=== PATIENT | female | born 1985 | race Caucasian/White ===

== ENCOUNTER 2022-07-11 10:17 | Emergency (ER) | payer MEDICAID ==
[2022-07-11] MEDS ORDERED: Cyclobenzaprine 10 MG Tab PO ONE (12:23)
[2022-07-11] MEDS ORDERED: Ketorolac 60 MG/2 ML SDV IM ONE (12:23)
== END 2022-07-11 13:10 | disposition home or self-care (01) ==
LOC: JD.ED 10:17
DX: S39.012A Strain of muscle, fascia and tendon of lower back, initial encounter (principal); I10 Essential (primary) hypertension; Z88.8 Allergy status to other drugs, medicaments and biological substances; Z88.1 Allergy status to other antibiotic agents; Z79.899 Other long term (current) drug therapy
CPT/HCPCS: 96372; 99283; A9270; J1885

== ENCOUNTER 2022-09-21 08:31 | Day surgery (SDC) | payer MEDICAID ==
[~2022-09-21 08:31] MED LIST: Lactated Ringers 1,000 ML IV SCH; Lidocaine 1%/Sod Bicarbonate in NS 8.4% 1 ML Syringe IDERM PRN; Sodium Chloride 0.9% 10 ML Syringe FLUSH PRN; Sodium Chloride 0.9% 10 ML Syringe FLUSH SCH
[2022-09-21] MEDS: Lactated Ringers 1,000 ML IV SCH (09:20)
[2022-09-21] MEDS ORDERED: Bupivacaine 0.25% 10 ML SDV ONE (09:43)
[2022-09-21] MEDS ORDERED: fentaNYL 100 MCG/2 ML SDV ONE (10:10)
[2022-09-21] MEDS ORDERED: Propofol 200 MG/20 ML SDV ONE (10:10)
[2022-09-21] MEDS ORDERED: Lidocaine 1% 4 ML ONE (10:10)
[2022-09-21] MEDS ORDERED: Midazolam 1 MG/ML 2 ML SDV ONE (10:38)
[2022-09-21] MEDS: Bupivacaine 0.5% 30 ML SDV ONE (11:13)
[2022-09-21] MEDS ORDERED: Ketorolac 15 MG/ML SDV ONE (11:18)
[2022-09-21] MEDS ORDERED: Ketorolac 30 MG/ML SDV ONE (11:23)
== END 2022-09-21 12:54 | disposition home or self-care (01) ==
LOC: JD.SDS 08:31
PROVIDERS: ATTEND Surgery
DX: K63.5 Polyp of colon (principal); K62.1 Rectal polyp; K29.70 Gastritis, unspecified, without bleeding; K29.80 Duodenitis without bleeding; K64.4 Residual hemorrhoidal skin tags; I10 Essential (primary) hypertension; K21.9 Gastro-esophageal reflux disease without esophagitis; I42.9 Cardiomyopathy, unspecified; G47.30 Sleep apnea, unspecified; Z80.0 Family history of malignant neoplasm of digestive organs; Z98.890 Other specified postprocedural states; Z90.710 Acquired absence of both cervix and uterus; Z79.82 Long term (current) use of aspirin; Z79.899 Other long term (current) drug therapy; Z88.1 Allergy status to other antibiotic agents; Z88.8 Allergy status to other drugs, medicaments and biological substances; Z83.71 Family history of colonic polyps
CPT/HCPCS: J1885; J2250; J2704; J3010; J3490; J7120

== ENCOUNTER 2022-10-07 23:44 | Emergency (ER) | payer MEDICAID ==
[2022-10-07] MEDS ORDERED: Sodium Chloride 0.9% 1,000 ML IV SCH (23:45)
[2022-10-07] MEDS ORDERED: Ondansetron 4 MG/2 ML SDV IVPUSH ONE (23:55)
[2022-10-08] MEDS ORDERED: HYDROmorphone 0.5 MG/0.5 ML Syringe IVPUSH ONE ×2 (00:38→03:08)
[2022-10-08 00:54] LABS: ESTIMATED GFR 59 mL/min (>60)
[2022-10-08] MEDS ORDERED: Sodium Chloride 0.9% 1,000 ML IV SCH (02:00)
[2022-10-08] MEDS ORDERED: Sodium Chloride 0.9% 10 ML Syringe FLUSH ONE (02:03)
[2022-10-08] MEDS ORDERED: Iopamidol 612 MG/ML 100 ML Bottle IVPUSH ONE (02:03)
== END 2022-10-08 04:10 | disposition home or self-care (01) ==
LOC: JD.ED 23:44
DX: R10.84 Generalized abdominal pain (principal); R11.2 Nausea with vomiting, unspecified; I11.9 Hypertensive heart disease without heart failure; K21.9 Gastro-esophageal reflux disease without esophagitis; Z95.0 Presence of cardiac pacemaker; Z88.1 Allergy status to other antibiotic agents; Z88.8 Allergy status to other drugs, medicaments and biological substances; Z79.899 Other long term (current) drug therapy
CPT/HCPCS: 36415; 74019; 74177; 80053; 83690; 84484; 84702; 85025; 86140; 93005; 96361; 96374; 96375; 96376; 99284; J1170; J2405; J3490; J7030; Q9967; 93010

== ENCOUNTER 2024-03-13 21:52 | Emergency (ER) | payer MEDICAID ==
[2024-03-13 22:12] LABS: BASOPHILS ABSOLUTE AUTO 0.1 K/mm3 (0.0-0.2); BASOPHILS PERCENT AUTO 0.6 % (0.0-1.0); EOSINOPHILS ABSOLUTE AUTO 0.4 K/mm3 (0.0-0.4); EOSINOPHILS PERCENT AUTO 2.9 % (0.0-6.0); HEMATOCRIT 48.2 % (37.0-47.0); HEMOGLOBIN 15.7 gm/dl (12.0-16.0); IMMATURE GRAN ABSOLUTE AUTO 0.04 K/mm3 (0.00-0.05); IMMATURE GRAN PERCENT AUTO 0.3 % (0.0-0.4); LYMPHOCYTES ABSOLUTE AUTO 5.1 K/mm3 (1.0-4.8); LYMPHOCYTES PERCENT AUTO 35.8 % (24.0-44.0); MEAN CORPUSCULAR HEMOGLOBIN 27.4 pg (28.0-32.0); MEAN CORPUSCULAR HGB CONC 32.6 g/dl (32.0-36.0); MEAN CORPUSCULAR VOLUME 84.1 fl (83.0-99.0); MEAN PLATELET VOLUME 9.4 fl (9.4-12.3); MONOCYTES PERCENT AUTO 6.9 % (0.0-8.0); NEUTROPHILS ABSOLUTE AUTO 7.6 K/mm3 (1.8-7.7); NEUTROPHILS PERCENT AUTO 53.5 % (41.0-71.0); PLATELET COUNT,PLT 246 K/mm3 (150-400); RED BLOOD CELL COUNT 5.73 M/mm3 (4.10-5.30); WHITE BLOOD CELL COUNT,WBC 14.19 K/mm3 (3.9-11.3)
[2024-03-13 22:34] LABS: A/G RATIO 1.1 (1-2); ALANINE AMINOTRANSFERASE,ALT 32 U/L (14-59); ALBUMIN 4.3 g/dl (3.4-5.0); ALKALINE PHOSPHATASE 104 U/L (46-116); ANION GAP 12.7 (5-15); ASPARTATE AMNIOTRANSFERASE,AST 19 U/L (15-37); BILIRUBIN TOTAL 0.6 mg/dL (0.2-1.0); BLOOD UREA NITROGEN,BUN 19 mg/dL (7-18); BUN/CREATININE RATIO 15.8 (14-18); CALCIUM 9.8 mg/dL (8.5-10.1); CARBON DIOXIDE,CO2 25 mEq/L (21-32); CHLORIDE,CL 100 mEq/L (98-107); CREATININE 1.2 mg/dL (0.55-1.02); ESTIMATED GFR 59 mL/min (>60); GLUCOSE RANDOM 143 mg/dL (70-99); POTASSIUM,K 3.7 mEq/L (3.5-5.1); PROTEIN TOTAL,TP 8.4 g/dl (6.4-8.2); SODIUM,NA 134 mEq/L (136-145)
[2024-03-13 23:19] LABS: SLIDE REVIEW ABNORMAL SMEAR
[2024-03-13 23:26] LABS: INR 1.03; PROTHROMBIN TIME 10.9 SECONDS (9.7-12.0)
[2024-03-14] MEDS: Tenecteplase 50 MG Kit IVPUSH ONE (00:02)
[2024-03-14 00:03] LABS: APPEARANCE,URINE CLEAR (Clear); BILIRUBIN,URINE NEGATIVE (Negative); COLOR,URINE LIGHT YELLOW (Yellow); GLUCOSE,URINE 2+ (Negative); KETONES,URINE NEGATIVE (Negative); LEUKOCYTE ESTERASE,URINE NEGATIVE (Negative); NITRITE,URINE NEGATIVE (Negative); OCCULT BLOOD,URINE TRACE-INTACT (Negative); PROTEIN,URINE NEGATIVE (Negative); UROBILINOGEN,URINE 0.2 (0.2-1.0)
[2024-03-14] MEDS: Sodium Chloride 0.9% 10 ML Syringe FLUSH PRN (00:13)
[2024-03-14 00:32] LABS: BARBITURATE SCREEN,URINE NEGATIVE (CUTOFF=200); BENZODIAZEPINES SCREEN,URINE NEGATIVE (CUTOFF=150); BUPRENORPHINE SCREEN,URINE NEGATIVE (CUTOFF=10); METHADONE SCREEN, URINE NEGATIVE (CUTOFF=200); METHAMPHETAMINES SCREEN, URINE NEGATIVE (CUTOFF=500); OXYCODONE SCREEN,URINE NEGATIVE (CUT0FF=100); THC SCREEN,URINE 20 NG/ML NEGATIVE (CUTOFF=50)
[2024-03-14 00:38] LABS: AMORPHOUS SEDIMENT,URINE RARE /hpf (NOT SEEN); BACTERIA,URINE FEW /hpf (FEW); MUCUS,URINE NOT SEEN /hpf (FEW); RBC,URINE 0-5 /hpf (0-5); WBC,URINE 0-5 /hpf (0-5)
[2024-03-14 00:40] LABS: AMPHETAMINES SCREEN, URINE NEGATIVE (CUTOFF=500)
[2024-03-14] MEDS: Acetaminophen 325 MG Tab PO ONE (00:50)
[2024-03-14] MEDS: Acetaminophen 325 MG Tab ONE (02:43)
== END 2024-03-14 01:00 ==
LOC: JD.ED 21:52
DX: R29.810 Facial weakness (principal); R47.81 Slurred speech; R53.1 Weakness; I10 Essential (primary) hypertension; K21.9 Gastro-esophageal reflux disease without esophagitis; E11.9 Type 2 diabetes mellitus without complications; Z86.73 Personal history of transient ischemic attack (TIA), and cerebral infarction without residual deficits; Z79.82 Long term (current) use of aspirin; Z79.899 Other long term (current) drug therapy; Z88.8 Allergy status to other drugs, medicaments and biological substances; Z88.1 Allergy status to other antibiotic agents; Z95.0 Presence of cardiac pacemaker
CPT/HCPCS: 36415; 37195; 70450; 70496; 70498; 80053; 80306; 80307; 81001; 82947; 84484; 85025; 85610; 85730; 93005; 99285; A9270; J3101; J3490

== ENCOUNTER 2024-08-14 07:40 | Inpatient (IN) | payer MEDICAID ==
[2024-08-14 08:15] LABS: BASOPHILS ABSOLUTE AUTO 0.1 K/mm3 (0.0-0.2); BASOPHILS PERCENT AUTO 0.5 % (0.0-1.0); EOSINOPHILS ABSOLUTE AUTO 0.2 K/mm3 (0.0-0.4); EOSINOPHILS PERCENT AUTO 1.1 % (0.0-6.0); IMMATURE GRAN ABSOLUTE AUTO 0.04 K/mm3 (0.00-0.05); IMMATURE GRAN PERCENT AUTO 0.3 % (0.0-0.4); LYMPHOCYTES ABSOLUTE AUTO 2.8 K/mm3 (1.0-4.8); LYMPHOCYTES PERCENT AUTO 21.2 % (24.0-44.0); MEAN CORPUSCULAR HEMOGLOBIN 27.2 pg (28.0-32.0); MEAN CORPUSCULAR HGB CONC 32.7 g/dl (32.0-36.0); MEAN CORPUSCULAR VOLUME 83.3 fl (83.0-99.0); MEAN PLATELET VOLUME 9.9 fl (9.4-12.3); MONOCYTES ABSOLUTE AUTO 0.6 K/mm3 (0.0-0.8); MONOCYTES PERCENT AUTO 4.6 % (0.0-8.0); NEUTROPHILS ABSOLUTE AUTO 9.5 K/mm3 (1.8-7.7); NEUTROPHILS PERCENT AUTO 72.3 % (41.0-71.0); PLATELET COUNT,PLT 260 K/mm3 (150-400); RED BLOOD CELL COUNT 6.24 M/mm3 (4.10-5.30)
[2024-08-14] MEDS: Sodium Chloride 0.9% 10 ML Syringe FLUSH PRN ×2 (08:19→09:08)
[2024-08-14] MEDS: Iopamidol 755 Mg/ML 100 ML Bottle IVPUSH ONE (08:19)
[2024-08-14] MEDS: Sodium Chloride 0.9% 100 ML IV SCH (08:19)
[2024-08-14 08:39] LABS: A/G RATIO 1.1 (1-2); ALANINE AMINOTRANSFERASE,ALT 25 U/L (14-59); ALBUMIN 4.1 g/dl (3.4-5.0); ALKALINE PHOSPHATASE 101 U/L (46-116); ANION GAP 13.2 (5-15); ASPARTATE AMNIOTRANSFERASE,AST 15 U/L (15-37); BILIRUBIN TOTAL 0.9 mg/dL (0.2-1.0); BLOOD UREA NITROGEN,BUN 17 mg/dL (7-18); BUN/CREATININE RATIO 14.2 (14-18); CALCIUM 9.8 mg/dL (8.5-10.1); CARBON DIOXIDE,CO2 25 mEq/L (21-32); CHLORIDE,CL 102 mEq/L (98-107); CREATININE 1.2 mg/dL (0.55-1.02); ESTIMATED GFR 59 mL/min (>60); GLUCOSE RANDOM 141 mg/dL (70-99); INR 1.01; MAGNESIUM 1.7 mg/dL (1.8-2.4); POTASSIUM,K 4.2 mEq/L (3.5-5.1); PROTHROMBIN TIME 10.7 SECONDS (9.7-12.0); SODIUM,NA 136 mEq/L (136-145)
[2024-08-14 08:45] LABS: TROPONIN I HIGH SENSITIVITY 140 pg/mL (<=51)
[2024-08-14] MEDS: Sodium Chloride 0.9% 500 ML IV ONE (09:08)
[2024-08-14] MEDS: Acetaminophen 325 MG Tab PO ONE (09:08)
[2024-08-14 11:02] LABS: BARBITURATE SCREEN,URINE NEGATIVE (CUTOFF=200); BENZODIAZEPINES SCREEN,URINE NEGATIVE (CUTOFF=150); BUPRENORPHINE SCREEN,URINE NEGATIVE (CUTOFF=10); METHADONE SCREEN, URINE NEGATIVE (CUTOFF=200); METHAMPHETAMINES SCREEN, URINE NEGATIVE (CUTOFF=500); OXYCODONE SCREEN,URINE NEGATIVE (CUT0FF=100); THC SCREEN,URINE 20 NG/ML NEGATIVE (CUTOFF=50)
[2024-08-14 11:03] LABS: AMPHETAMINES SCREEN, URINE NEGATIVE (CUTOFF=500)
[2024-08-14] MEDS: Magnesium Oxide 400 MG Tab PO ONE (11:49)
[2024-08-14] MEDS: Amiodarone 200 MG Tab PO ONE (12:12)
[2024-08-14] MEDS: Aspirin 81 MG Tab.Chew PO ONE (15:20)
[2024-08-14] MEDS ORDERED: Ondansetron 4 MG/2 ML SDV IV PRN (16:07)
[2024-08-14] MEDS ORDERED: hydrALAZINE 20 MG/ML SDV IVPUSH PRN (16:12)
[2024-08-14 16:52] LABS: HEMOGLOBIN A1C 6.4 %
[2024-08-14 17:15] LABS: TSH 1.061 uIU/mL (0.358-3.74)
[2024-08-14] MEDS: Acetaminophen 325 MG Tab PO PRN (19:26)
[2024-08-14] MEDS: atorvaSTATin 40 MG Tab PO SCH (20:49)
[2024-08-15 05:01] LABS: BASOPHILS ABSOLUTE AUTO 0.1 K/mm3 (0.0-0.2); BASOPHILS PERCENT AUTO 0.6 % (0.0-1.0); EOSINOPHILS ABSOLUTE AUTO 0.2 K/mm3 (0.0-0.4); EOSINOPHILS PERCENT AUTO 1.9 % (0.0-6.0); HEMATOCRIT 48.1 % (37.0-47.0); IMMATURE GRAN ABSOLUTE AUTO 0.03 K/mm3 (0.00-0.05); IMMATURE GRAN PERCENT AUTO 0.3 % (0.0-0.4); LYMPHOCYTES ABSOLUTE AUTO 3.1 K/mm3 (1.0-4.8); LYMPHOCYTES PERCENT AUTO 26.4 % (24.0-44.0); MEAN CORPUSCULAR HEMOGLOBIN 27.4 pg (28.0-32.0); MEAN CORPUSCULAR HGB CONC 35.3 g/dl (32.0-36.0); MEAN CORPUSCULAR VOLUME 77.6 fl (83.0-99.0); MEAN PLATELET VOLUME 9.5 fl (9.4-12.3); MONOCYTES ABSOLUTE AUTO 0.7 K/mm3 (0.0-0.8); MONOCYTES PERCENT AUTO 5.9 % (0.0-8.0); NEUTROPHILS ABSOLUTE AUTO 7.6 K/mm3 (1.8-7.7); NEUTROPHILS PERCENT AUTO 64.9 % (41.0-71.0); PLATELET COUNT,PLT 233 K/mm3 (150-400); WHITE BLOOD CELL COUNT,WBC 11.74 K/mm3 (3.9-11.3)
[2024-08-15 05:49] LABS: ALANINE AMINOTRANSFERASE,ALT 20 U/L (14-59); ALBUMIN 3.7 g/dl (3.4-5.0); ALKALINE PHOSPHATASE 91 U/L (46-116); ASPARTATE AMNIOTRANSFERASE,AST 13 U/L (15-37); BILIRUBIN TOTAL 1.6 mg/dL (0.2-1.0); BLOOD UREA NITROGEN,BUN 16 mg/dL (7-18); BUN/CREATININE RATIO 14.5 (14-18); CARBON DIOXIDE,CO2 24 mEq/L (21-32); CHLORIDE,CL 104 mEq/L (98-107); CHOLESTEROL HDL 34 mg/dL (40-59); CHOLESTEROL LDL DIRECT 75 mg/dL (<100); CHOLESTEROL TOTAL 124 mg/dL (<200); CREATININE 1.1 mg/dL (0.55-1.02); ESTIMATED GFR 65 mL/min (>60); GLUCOSE RANDOM 129 mg/dL (70-99); PROTEIN TOTAL,TP 7.4 g/dl (6.4-8.2); SODIUM,NA 138 mEq/L (136-145); TRIGLYCERIDES 170 mg/dL (<150)
[2024-08-15] MEDS ORDERED: 50% Dextrose in Water 50 ML Syringe IVPUSH PRN (08:05)
[2024-08-15] MEDS: Amiodarone 200 MG Tab PO SCH (08:14)
[2024-08-15] MEDS: Aspirin 81 MG Tab.Chew PO SCH (08:14)
[2024-08-15] MEDS: Enoxaparin 40 MG/0.4 ML Syringe SUBCUT SCH (08:15)
[2024-08-15] MEDS: Sodium Bicarbonate 650 MG Tab PO SCH (08:15)
[2024-08-15] MEDS: Sodium Chloride 0.9% 1,000 ML IV SCH (08:53)
[2024-08-15] MEDS: Insulin Lispro 100 Unit/ML 3 ML KwikPen SUBCUT SCH (10:50)
[2024-08-15] MEDS: Carvedilol 12.5 MG Tab PO SCH (20:25)
[2024-08-15] MEDS: Melatonin 3 MG Tab PO PRN (20:36)
[2024-08-16] MEDS: valACYclovir 1,000 MG Tab PO SCH (08:28)
== END 2024-08-16 14:21 | disposition home or self-care (01) | DRG 69 ==
LOC: JD.ED 07:40 → JD.MS 15:48
PROVIDERS: ADMIT Family Medicine; ATTEND Family Medicine
DX: R53.2 Functional quadriplegia (principal); G45.9 Transient cerebral ischemic attack, unspecified; I49.01 Ventricular fibrillation; G81.94 Hemiplegia, unspecified affecting left nondominant side; I42.9 Cardiomyopathy, unspecified; Z90.49 Acquired absence of other specified parts of digestive tract; T82.897A Other specified complication of cardiac prosthetic devices, implants and grafts, initial encounter; I10 Essential (primary) hypertension; E11.9 Type 2 diabetes mellitus without complications; E04.1 Nontoxic single thyroid nodule; H54.7 Unspecified visual loss; G47.30 Sleep apnea, unspecified; K21.9 Gastro-esophageal reflux disease without esophagitis; Z88.1 Allergy status to other antibiotic agents; Z88.8 Allergy status to other drugs, medicaments and biological substances; Z79.82 Long term (current) use of aspirin; Z79.02 Long term (current) use of antithrombotics/antiplatelets; Z79.899 Other long term (current) drug therapy; Z90.89 Acquired absence of other organs; Z86.74 Personal history of sudden cardiac arrest; Z95.810 Presence of automatic (implantable) cardiac defibrillator; Z86.73 Personal history of transient ischemic attack (TIA), and cerebral infarction without residual deficits; Z90.710 Acquired absence of both cervix and uterus; Z98.890 Other specified postprocedural states; Z98.891 History of uterine scar from previous surgery; Z87.891 Personal history of nicotine dependence
CPT/HCPCS: 36415; 70450; 70450-26; 70496; 70496-26; 70498; 70498-26; 71045; 71045-26; 80053; 80061; 80306; 82947; 83036; 83735; 84443; 84484; 84703; 85025; 85610; 85730; 93005; 93306; 96360; 96361; 97110-GP; 97112-GP; 97116-GP; 97161-GP; 97530-GP; 99285-25; A9270-GY; J1650; J3490; J7030; Q9967

== ENCOUNTER 2024-11-26 17:41 | Emergency (ER) | payer MEDICAID ==
[2024-11-26 19:42] LABS: APPEARANCE,URINE CLEAR (Clear); BILIRUBIN,URINE NEGATIVE (Negative); COLOR,URINE YELLOW (Yellow); GLUCOSE,URINE 2+ (Negative); KETONES,URINE TRACE (Negative); LEUKOCYTE ESTERASE,URINE NEGATIVE (Negative); NITRITE,URINE NEGATIVE (Negative); OCCULT BLOOD,URINE TRACE-INTACT (Negative); PROTEIN,URINE 1+ (Negative); UROBILINOGEN,URINE 0.2 (0.2-1.0)
[2024-11-26] MEDS: Sodium Chloride 0.9% 1,000 ML IV ONE (19:44)
[2024-11-26] MEDS: Ketorolac 15 MG/ML SDV IVPUSH ONE (19:44)
[2024-11-26] MEDS: Sodium Chloride 0.9% 10 ML Syringe FLUSH ONE (19:44)
[2024-11-26 19:53] LABS: BASOPHILS PERCENT AUTO 0.3 % (0.0-1.0); EOSINOPHILS ABSOLUTE AUTO 0.3 K/mm3 (0.0-0.4); EOSINOPHILS PERCENT AUTO 2.6 % (0.0-6.0); HEMATOCRIT 48.8 % (37.0-47.0); HEMOGLOBIN 16.2 gm/dl (12.0-16.0); IMMATURE GRAN ABSOLUTE AUTO 0.04 K/mm3 (0.00-0.05); IMMATURE GRAN PERCENT AUTO 0.3 % (0.0-0.4); LYMPHOCYTES ABSOLUTE AUTO 3.2 K/mm3 (1.0-4.8); LYMPHOCYTES PERCENT AUTO 27.2 % (24.0-44.0); MEAN CORPUSCULAR HEMOGLOBIN 28.6 pg (28.0-32.0); MEAN CORPUSCULAR HGB CONC 33.2 g/dl (32.0-36.0); MEAN CORPUSCULAR VOLUME 86.2 fl (83.0-99.0); MONOCYTES ABSOLUTE AUTO 1.2 K/mm3 (0.0-0.8); MONOCYTES PERCENT AUTO 10.6 % (0.0-8.0); NEUTROPHILS ABSOLUTE AUTO 6.8 K/mm3 (1.8-7.7); PLATELET COUNT,PLT 245 K/mm3 (150-400); RED BLOOD CELL COUNT 5.66 M/mm3 (4.10-5.30)
[2024-11-26 20:07] LABS: BACTERIA,URINE FEW /hpf (FEW); MUCUS,URINE FEW /hpf (FEW); WBC,URINE 0-5 /hpf (0-5)
[2024-11-26] MEDS: Iopamidol 612 MG/ML 100 ML Bottle IVPUSH ONE (20:11)
[2024-11-26] MEDS: Sodium Chloride 0.9% 10 ML Syringe FLUSH PRN (20:11)
[2024-11-26 20:24] LABS: ALBUMIN 3.5 g/dl (3.4-5.0); ANION GAP 13.7 (5-15); BILIRUBIN TOTAL 0.9 mg/dL (0.2-1.0); BUN/CREATININE RATIO 13.3 (14-18); CALCIUM 8.6 mg/dL (8.5-10.1); CREATININE 1.2 mg/dL (0.55-1.02); EST CRCL DRUG DOSING (CG) 51.55 mL/min; PROTEIN TOTAL,TP 7.1 g/dl (6.4-8.2)
[2024-11-26 20:26] LABS: POTASSIUM,K 3.7 mEq/L (3.5-5.1)
== END 2024-11-26 21:14 | disposition home or self-care (01) ==
LOC: JD.ED 17:41
DX: K63.89 Other specified diseases of intestine (principal); I10 Essential (primary) hypertension; E11.9 Type 2 diabetes mellitus without complications; Z88.1 Allergy status to other antibiotic agents; Z88.5 Allergy status to narcotic agent; Z88.8 Allergy status to other drugs, medicaments and biological substances; Z79.82 Long term (current) use of aspirin; Z79.899 Other long term (current) drug therapy; Z95.0 Presence of cardiac pacemaker; Z86.73 Personal history of transient ischemic attack (TIA), and cerebral infarction without residual deficits
CPT/HCPCS: 36415; 74177; 80053; 81001; 83690; 84703; 85025; 96361; 96374; 99284; J1885; J7030; Q9967; 99283

== ENCOUNTER 2025-03-24 22:09 | Emergency (ER) | payer MEDICAID ==
[2025-03-24 22:46] LABS: BASOPHILS ABSOLUTE AUTO 0.1 K/mm3 (0.0-0.2); BASOPHILS PERCENT AUTO 0.5 % (0.0-1.0); EOSINOPHILS ABSOLUTE AUTO 0.1 K/mm3 (0.0-0.4); EOSINOPHILS PERCENT AUTO 0.8 % (0.0-6.0); IMMATURE GRAN ABSOLUTE AUTO 0.04 K/mm3 (0.00-0.05); IMMATURE GRAN PERCENT AUTO 0.3 % (0.0-0.4); LYMPHOCYTES ABSOLUTE AUTO 3.9 K/mm3 (1.0-4.8); LYMPHOCYTES PERCENT AUTO 30.8 % (24.0-44.0); MEAN PLATELET VOLUME 10.0 fl (9.4-12.3); MONOCYTES ABSOLUTE AUTO 0.9 K/mm3 (0.0-0.8); MONOCYTES PERCENT AUTO 7.2 % (0.0-8.0); NEUTROPHILS ABSOLUTE AUTO 7.6 K/mm3 (1.8-7.7); NEUTROPHILS PERCENT AUTO 60.4 % (41.0-71.0); NRBC ABSOLUTE 0.00 (0.00-0.02); NRBC PERCENT 0.0 % (0.0-0.2); PLATELET COUNT,PLT 257 K/mm3 (150-400); RED BLOOD CELL COUNT 6.66 M/mm3 (4.10-5.30); WHITE BLOOD CELL COUNT,WBC 12.50 K/mm3 (3.9-11.3)
[2025-03-24 23:04] LABS: A/G RATIO 1.1 (1-2); ALANINE AMINOTRANSFERASE,ALT 43.0 U/L (14-59); ASPARTATE AMNIOTRANSFERASE,AST 23.0 U/L (15-37); BILIRUBIN TOTAL 0.9 mg/dL (0.2-1.0); BLOOD UREA NITROGEN,BUN 18.0 mg/dL (7-18); CARBON DIOXIDE,CO2 20.0 mEq/L (21-32); CHLORIDE,CL 101.0 mEq/L (98-107); CREATININE 1.4 mg/dL (0.55-1.02); EST CRCL DRUG DOSING (CG) 43.74 mL/min; ESTIMATED GFR 48.0 mL/min (>60); PROTEIN TOTAL,TP 8.2 g/dl (6.4-8.2); SODIUM,NA 136.0 mEq/L (136-145); TROPONIN I HIGH SENSITIVITY 10.0 pg/mL (<=51)
[2025-03-24 23:05] LABS: GLUCOSE RANDOM 127.0 mg/dL (70-99); POTASSIUM,K 3.6 mEq/L (3.5-5.1)
== END 2025-03-25 04:00 | disposition home or self-care (01) ==
LOC: JD.ED 22:09
DX: R07.9 Chest pain, unspecified (principal); I10 Essential (primary) hypertension; E11.9 Type 2 diabetes mellitus without complications; Z86.73 Personal history of transient ischemic attack (TIA), and cerebral infarction without residual deficits; K21.9 Gastro-esophageal reflux disease without esophagitis; Z88.8 Allergy status to other drugs, medicaments and biological substances; Z88.1 Allergy status to other antibiotic agents; Z79.82 Long term (current) use of aspirin; Z79.899 Other long term (current) drug therapy; Z95.0 Presence of cardiac pacemaker
CPT/HCPCS: 36415; 71046; 80053; 84484; 85025; 85379; 93005; 99285; A9270; 93010; 99284